=== PATIENT | male | born 2000 | race Caucasian/White ===

== ENCOUNTER 2021-02-08 10:18 | Outpatient (REF) | payer SELFPAY ==
--- NOTE | ~2021-02-08 | XR_ITS ---
EXAMINATION: XR FINGER, LEFT CLINICAL INFORMATION: Cellulitis. COMPARISON: None TECHNIQUE: 3 views of the left third digit. FINDINGS: Soft tissue swelling is noted at the base of the nailbed and around the distal phalanx of the left third digit. No bony abnormality is seen. No evidence for osteomyelitis. No visualized foreign body. XR/XR finger LT min 2V IMPRESSION: Soft tissue swelling. No bony abnormality.
== END 2021-02-08 10:19 | disposition home or self-care (01) ==
LOC: HO.HMGCX 10:18
PROVIDERS: Visit Provider Physician Assistant Medical
DX: L03.90 Cellulitis, unspecified (principal)
CPT/HCPCS: 73140